=== PATIENT | female | born 1960 | race Two or more races ===

== ENCOUNTER 2020-04-16 12:12 | Outpatient (CLI) | payer OTHER | END 2020-04-16 12:31 | disposition home or self-care (01) | LOC: MAMO-SONO 12:12 | PROVIDERS: ATTEND Obstetrics & Gynecology | DX: Z12.31 Encounter for screening mammogram for malignant neoplasm of breast (principal); N60.11 Diffuse cystic mastopathy of right breast; N60.12 Diffuse cystic mastopathy of left breast; N64.59 Other signs and symptoms in breast ==

== ENCOUNTER 2024-04-28 09:58 | Inpatient (IN) | payer OTHER ==
[~2024-04-28] VITALS: Ht 157.5 cm; Wt 70.3 kg
[2024-04-28] MEDS ORDERED: SYNTHROID50 MCG PO (10:35)
[2024-04-28] MEDS ORDERED: PROGESTERONE200 MG PO (10:36)
[2024-04-28] MEDS ORDERED: MYCOPHENOLATE500 MG PO (10:37)
[2024-04-28 11:50] LABS: HEMATOCRIT 35.2 % (36.0-45.00); HEMOGLOBIN 11.9 g/dL (12.0-15.00); MEAN CELL VOLUME 90.4 fL (80.00-100.00); MEAN CORPUSCULAR HEMOGLOBIN 30.7 pg (27.00-32.0); PLATELET COUNT 186 K/uL (150-450); RED BLOOD COUNT 3.89 M/uL (4.00-6.00); RED CELL DISTRIBUTION WIDTH 13.1 % (11.5-14.5)
[2024-04-28] MEDS ORDERED: 0.9 % SODIUM CHLORIDE 1,000 ML IV SCH ×3 (12:00→21:15)
[2024-04-28 12:15] LABS: PH,URINE 5.5 (5.0-8.0); URINE APPEARANCE Clear; URINE BILIRRUBIN Small (NEGATIVE); URINE BLOOD Negative; URINE COLOR Dark Yellow; URINE GLUCOSE Negative (NEGATIVE); URINE KETONE Trace (NEGATIVE); URINE LEUKOCYTE Trace; URINE NITRATE Negative
[2024-04-28 12:20] LABS: URINE BACTERIA 18.3 uL (0.0-1933); URINE CAST 1.47 uL (0.0-1.40); URINE EPITHELIAL CELLS 36.8 uL (0.0-38.8); URINE RBC 12.6 uL (0.0-20.8); URINE WBC 5.2 uL (0.0-23.2)
[2024-04-28 12:31] LABS: URINE CRYSTALS MANY /HPF; URINE PROTEIN 100 (NEGATIVE)
[2024-04-28 12:40] LABS: ALBUMIN 2.3 gm/dL (3.4-5.0); BILIRUBIN TOTAL 0.91 mg/dL (0.3-1.2); CALCIUM 7.7 mg/dL (8.5-10.1); CREATININE SERUM 0.61 mg/dL (0.55-1.02); GFR 99.71; GLOBULINA 3.1 G/DL (2.4-3.5); POTASSIUM 3.47 mEq/L (3.5-5.1); TOTAL PROTEIN 5.4 gm/dL (6.4-8.2)
[2024-04-28] MEDS ORDERED: ACETAMINOPHEN 500 MG GEL..CAP PO ONE (18:55)
[2024-04-28] MEDS ORDERED: FAMOTIDINE/PF 20 MG in 0.9 % SODIUM CHLORIDE 8 ML IV PUSH SCH (20:52)
[2024-04-28] MEDS ORDERED: METRONIDAZOLE/SODIUM CHLORIDE 100 ML IV SCH (20:53)
[2024-04-28] MEDS ORDERED: CIPROFLOXACIN IN 5 % DEXTROSE 200 ML IV SCH (21:00)
[2024-04-28] MEDS ORDERED: ACETAMINOPHEN 500 MG GEL..CAP PO PRN (21:00)
[2024-04-28] MEDS ORDERED: ONDANSETRON HCL 4 MG in 0.9 % SODIUM CHLORIDE 50 ML IV PRN (21:00)
[2024-04-28] MEDS ORDERED: CIPROFLOXACIN IN 5 % DEXTROSE 400 MG/200 ML PIGGYBAG IV ONE (22:17)
[2024-04-28] MEDS ORDERED: FAMOTIDINE/PF 20 MG/2 ML VIAL ONE (22:17)
[2024-04-28] MEDS ORDERED: METRONIDAZOLE/SODIUM CHLORIDE 500 MG/100 ML PIGGYBACK IV ONE (22:17)
[2024-04-28 23:33] LABS: INR 1.13; PARTIAL THROMBOPLASTIN TIME 31.9 SECONDS (22.0-34.0); PROTHROMBIN TIME 12.2 SECONDS (9.0-11.5)
[2024-04-29 00:37] LABS: PH,URINE 5.5 (5.0-8.0); URINE APPEARANCE Clear; URINE BILIRRUBIN Small (NEGATIVE); URINE BLOOD Negative; URINE COLOR Dark Yellow; URINE GLUCOSE Negative (NEGATIVE); URINE KETONE Trace (NEGATIVE); URINE LEUKOCYTE Negative; URINE NITRATE Negative
[2024-04-29 00:41] LABS: URINE BACTERIA 8.5 uL (0.0-1933); URINE EPITHELIAL CELLS 20.8 uL (0.0-38.8); URINE RBC 60.2 uL (0.0-20.8); URINE WBC 4.1 uL (0.0-23.2)
[2024-04-29 02:00] VITALS: BP 121/80; O2SAT 98
[2024-04-29 02:47] LABS: URINE CAST 0.29 uL (0.0-1.40); URINE PROTEIN 100 (NEGATIVE)
[2024-04-29] MEDS ORDERED: LEVOTHYROXINE SODIUM 50 MCG TABLET PO SCH (06:00)
[2024-04-29 09:04] VITALS: BP 118/78; O2SAT 97
[2024-04-29 17:22] VITALS: BP 140/82
[2024-04-30 01:42] VITALS: BP 130/85; O2SAT 98
[2024-04-30 09:26] VITALS: BP 120/74; O2SAT 96
[2024-04-30 12:09] LABS: hav igm Negative (Negative); hcv Non Reactive (Non Reactive); hep b c Negative (Negative); hep b s ag Negative (Negative)
[2024-04-30] MEDS ORDERED: 0.9 % SODIUM CHLORIDE 10 ML VIAL IJ ONE (16:50)
[2024-04-30 18:03] VITALS: BP 116/78; O2SAT 97
[2024-05-01 02:42] VITALS: BP 116/73; O2SAT 97
[2024-05-01 11:54] VITALS: BP 112/72
[2024-05-01 19:01] VITALS: BP 121/83; O2SAT 96
[2024-05-02 01:09] VITALS: BP 117/78; O2SAT 98
[2024-05-02] MEDS ORDERED: ENOXAPARIN SODIUM 40 MG/0.4 ML SYRINGE SUBCUTANEO SCH (09:00)
[2024-05-02 09:55] VITALS: BP 109/65
[2024-05-02 12:56] LABS: ALBUMIN 1.9 gm/dL (3.4-5.0); BILIRUBIN TOTAL 0.68 mg/dL (0.3-1.2); CALCIUM 7.3 mg/dL (8.5-10.1); CREATININE SERUM 0.63 mg/dL (0.55-1.02); GFR 96.07; GLOBULINA 2.5 G/DL (2.4-3.5); POTASSIUM 3.55 mEq/L (3.5-5.1); TOTAL PROTEIN 4.4 gm/dL (6.4-8.2)
[2024-05-02] MEDS ORDERED: CIPROFLOXACIN HCL 500 MG TABLET PO NR (13:30)
[2024-05-02 16:16] VITALS: BP 97/67
[2024-05-02] MEDS ORDERED: CIPROFLOXACIN HCL 500 MG TABLET PO SCH (17:00)
[2024-05-02] MEDS ORDERED: FAMOtidine 20 MG TABLET PO SCH (21:00)
== END 2024-05-02 17:49 | disposition home or self-care (01) | DRG 872 ==
LOC: ER 10:01 → MEDJ 22:32
PROVIDERS: Emergency Medicine; General Practice; ADMIT Student in an Organized Health Care Education/Training Program; ATTEND Student in an Organized Health Care Education/Training Program
PROC: BW21YZZ Computerized Tomography (CT Scan) of Abdomen and Pelvis using Other Contrast (ICD-10-PCS; principal; 2024-04-28)
PROC: BW40ZZZ Ultrasonography of Abdomen (ICD-10-PCS; 2024-04-29)
PROC: B246ZZZ Ultrasonography of Right and Left Heart (ICD-10-PCS; 2024-04-29)
DX: A41.9 Sepsis, unspecified organism (principal); A09 Infectious gastroenteritis and colitis, unspecified; E86.0 Dehydration; R74.01 Elevation of levels of liver transaminase levels